=== PATIENT | male | born 1980 | race Caucasian/White ===

== ENCOUNTER 2024-06-22 21:38 | Observation (INO) | payer BC, MEDICARE ==
--- NOTE | 2024-06-22 22:02 | ED ---
General Adult HPI - General Chief complaint: Psychiatric Symptoms Stated complaint: Mental health, chest pain Time Seen by Provider: 06/22/24 21:47 Source: patient Mode of arrival: ambulatory Limitations: no limitations - History of Present Illness Initial comments: Patient is a 44-year-old with past medical 3 diabetes, hyperlipidemia presenting today for chest pain and and depression. Patient states that he has been feeling like he does not want to live anymore for about 7 to 8 years. He states that he lives at home with his mother who is an alcoholic and on his dog was sprayed by skin today which caused him to feel more suicidal than usual. He denies any plan and denies that he would actually harm himself. Denies homicidal ideation or hallucinations. Denies alcohol or drug use today. He states that he was driving and began having left-sided chest pressure that radiated to his left shoulder. He endorsed associated palpitations with this. Denies ADENIKE/ shortness of breath. Did feel sweaty and nauseous initially but no longer. No episodes of emesis. No cough or hemoptysis. - Related Data Home Medications Medication Instructions Recorded Confirmed Albuterol Sulfate [Albuterol 1 - 2 puff PO RT-Q4H PRN 06/23/24 06/24/24 Sulfate Hfa] Empagliflozin [Jardiance] 10 mg PO DAILY 06/23/24 06/24/24 Losartan [Cozaar] 25 mg PO DAILY 06/23/24 06/24/24 Previous Rx's Medication Instructions Recorded Aspirin 81 mg PO DAILY tab 06/24/24 Atorvastatin [Lipitor] 80 mg PO HS tab 06/24/24 Calcium Carbonate [Tums] 1,000 mg PO Q4HR PRN tab 06/24/24 Famotidine [Pepcid] 20 mg PO BID tab 06/24/24 INSULIN ASPART (NovoLOG) [NovoLOG See Protocol SQ ACHS each 06/24/24 (formulary)] FLUoxetine HCL [PROzac] 20 mg PO DAILY 30 Days #30 cap 06/29/24 INSULIN ASPART (NovoLOG) [NovoLOG 0 unit SQ ACHS each 06/29/24 (formulary)] amLODIPine [Norvasc] 5 mg PO DAILY tab 06/29/24 Allergies Allergy/AdvReac Type Severity Reaction Status Date / Time No Known Allergies Allergy Verified 06/23/24 07:28 Review of Systems ROS Statement: Those systems with pertinent positive or pertinent negative responses have been documented in the HPI. ROS Other: All systems not noted in ROS Statement are negative. Past Medical History Past Medical History: Diabetes Mellitus, Hypertension History of Any Multi-Drug Resistant Organisms: MRSA Date of last positivie culture/infection: 2019 right leg Past Surgical History: Orthopedic Surgery Additional Past Surgical History / Comment(s): brain tumor, right leg amputation Past Psychological History: Depression Smoking Status: Former smoker Past Alcohol Use History: Rare Past Drug Use History: None Reported General Exam - General Exam Comments Initial Comments: PE: CONSTITUTIONAL: No apparent distress, well appearing SKIN: Warm, dry, no jaundice, hives or petechiae EYES: Pupils are equally round, extraocular movements intact without nystagmus, clear conjunctiva, non-icteric sclera HENT: Normocephalic, atraumatic, moist mucus membranes, oropharynx clear without exudates NECK: , Full range of motion, normal appearance PULMONARY: Clear to auscultation without wheezes, rhonchi, or rales, normal excursion, no accessory muscle use and no stridor CARDIOVASCULAR: Regular rate, rhythm, normal S1 and S2. No appreciated murmurs, rubs or gallops. Strong radial pulses with intact distal perfusion. No lower extremity edema GASTROINTESTINAL: Soft, active bowel sounds throughout, non-tender, non- distended, no palpable masses, no rebound or guarding. No hepatosplenomegaly GENITOURINARY: MUSCULOSKELETAL: Right CHRISTOPHER. Otherwise extremities have no gross deformity, no edema, redness, or swelling. No calf swelling NEUROLOGIC:_a/o x 3, GCS 15, normal mentation and speech. Moves all extremities x 4 without motor or sensory deficit PSYCHIATRIC: Depressed mood and affect, thought process is clear and linear Limitations: no limitations Course Vital Signs 06/22/24 06/22/24 06/23/24 21:40 23:34 00:59 Temperature 99.1 F Pulse Rate 117 H 94 88 Respiratory 20 18 18 Rate Blood Pressure 181/106 142/84 157/88 O2 Sat by Pulse 96 97 98 Oximetry 06/23/24 06/23/24 06/23/24 01:00 02:00 03:00 Temperature Pulse Rate 80 82 90 Respiratory 18 18 18 Rate Blood Pressure 146/96 121/71 130/75 O2 Sat by Pulse 96 97 94 L Oximetry 06/23/24 06/23/24 06/23/24 05:19 07:47 08:29 Temperature 97.7 F 97.9 F Pulse Rate 87 73 Respiratory 16 18 Rate Blood Pressure 132/91 128/81 O2 Sat by Pulse 96 99 97 Oximetry 06/23/24 06/23/24 06/23/24 09:22 10:51 14:11 Temperature Pulse Rate 76 79 73 Respiratory 16 16 17 Rate Blood Pressure 116/70 129/82 111/55 O2 Sat by Pulse 97 99 97 Oximetry 06/23/24 06/23/24 15:13 17:28 Temperature 97.8 F Pulse Rate 81 77 Respiratory 16 16 Rate Blood Pressure 119/60 129/86 O2 Sat by Pulse 98 Oximetry EKG Findings - EKG Comments: EKG Findings:: Sinus tachycardia, rate 102 bpm, CA interval 162 ms, QRS duration 105 ms, QT/QTc 336/394 ms, normal axis, no ST elevations or depressions, no arrhythmia Medical Decision Making - Medical Decision Making Was pt. sent in by a medical professional or institution (GABRIELA Zuniga, PHARMACY TECHNICIAN TRAINEE, urgent care, hospital, or fpc...) When possible be specific @ -No Did you speak to anyone other than the patient for history (EMS, parent, family, police, friend...)? What history was obtained from this source @ -No Did you review nursing and triage notes (agree or disagree)? Why? @ -I reviewed and agree with nursing and triage notes Were old charts reviewed (outside hosp., previous admission, EMS record, old EKG, old radiological studies, urgent care reports/EKG's, fpc records)? Report findings @ -Medical records reviewed Differential Diagnosis (chest pain, altered mental status, abdominal pain women, abdominal pain men, vaginal bleeding, weakness, fever, dyspnea, syncope, headache, dizziness, GI bleed, back pain, seizure, CVA, palpatations, mental health, musculoskeletal)? @Differential Chest Pain: Stable Angina, Unstable Angina, STEMI, NSTEMI pericarditis, pleurisy, chostochondirits, Pneumothorax, Musculoskeletal, Esophageal Spasm GERD, Cholecystitis, Pancreatitis, Zoster, this is not meant to be an all-inclusive list. Differential Mental Health Depression, anxiety, bipolar, psychosis, schizophrenia, borderline personality, situational depression, adjustment disorder, behavioral disorder, brain tumor, malingering, substance abuse, encephalopathy, medication reaction, dementia, hypothyroidism, degenerative neurologic disorder, lupus.... This is not meant to be all-inclusive list EKG interpreted by me (3pts min.). @ -As above X-rays interpreted by me (1pt min.). None done CT interpreted by me (1pt min.). @ -No PE U/S interpreted by me (1pt. min.). @ -None done What testing was considered but not performed or refused? (CT, X-rays, U/S, labs)? Why? @ -None What meds were considered but not given or refused? Why? @ -None Did you discuss the management of the patient with other professionals (pr ofessionals i.e. , PA, PHARMACY TECHNICIAN TRAINEE, lab, RT, psych nurse, licensed social worker, telephone maintenance mechanic, teacher, upscale security officer, skilled nursing case manager)? Give summary @ -No Was smoking cessation discussed for >3mins.? @ -No Was critical care preformed (if so, how long)? @ -No Were there social determinants of health that impacted care today? How? (Homelessness, low income, unemployed, alcoholism, drug addiction, transportation, low edu. Level, literacy, decrease access to med. care, halfway, rehab)? @ -No Was there de-escalation of care discussed even if they declined (Discuss DNR or withdrawal of care, Hospice)? @ -No What co-morbidities impacted this encounter? (DM, HTN, Smoking, COPD, CAD, Cancer, CVA, ARF, Chemo, Hep., AIDS, mental health diagnosis, sleep apnea, morbid obesity)? @ -DM, depression Was patient admitted / discharged? Hospital course, mention meds given and route, prescriptions, significant lab abnormalities, going to OR and other pertinent info. @ admission Pleasant 44-year-old man history diabetes, anemia, depression presenting today for suicidal thoughts and chest pain. States had is under increased stress, his dog was sprayed by skunk and mother is an alcoholic. States he would not himself and denies access to weapons. States that he just does not want to live anymore. His concern for chest pain that began while he was driving this afternoon after increased stress, described as left-sided chest pressure that radiates to his shoulder. Now resolved. On assessment patient is well- appearing in no acute distress, no reproducible chest pain to palpation. No skin changes. Lungs clear auscultation bilaterally, normal S1-S2 on cardiac exam. Right AKA. Patient is withdrawn and guarded. Plan for chest pain workup and EPS evaluation. Pt agreeable with plan. We discussed anticipated admission for chest pain due to patient's risk factors, pt agreeable. Labs reviewed. D-dimer 0.99. Creatinine is somewhat elevated, 1.31, previously 0.8 in 2021 , potentially VIVIAN however GKF wnl and prior creatinine was drawn 2 years ago. Otherwise grossly within normal limits, including initial troponin. Abnormal values not concerning for acute pathology related to presenting complaint. EPS evaluated patient called patient's mother. Patient's mother stated that the patient held a gun to his head earlier this afternoon threatening to kill himself. Plan for admission for chest pain elevated heart score of 4. EPS will follow with patient if admitted. Pt's mother to present to file petition. D dimer 0.99, CTA negative for PE. Discussed case with Dr. Jurado who kindly accepts patient for admission. Pt admitted in stable condition. Undiagnosed new problem with uncertain prognosis? @ -No Drug Therapy requiring intensive monitoring for toxicity (Heparin, Nitro, Insulin, Cardizem)? @ -No Were any procedures done? @ -No Diagnosis/symptom? @ Chest pain, suicidal ideation Acute, or Chronic, or Acute on Chronic? @ -Acute Uncomplicated (without systemic symptoms) or Complicated (systemic symptoms)? @ Complicated Side effects of treatment? @ -No Exacerbation, Progression, or Severe Exacerbation? @ -No Poses a threat to life or bodily function? How? (Chest pain, [place], [place], pneumonia, PE, COPD, DKA, ARF, appy, cholecystitis, CVA, Diverticulitis, Homicidal, Suicidal, threat to staff... and all critical care pts) @ -Yes, both CP w/ elevated Heart Score and SI pose threat to life - Lab Data Result diagrams: 06/22/24 23:04 06/24/24 05:58 Lab Results 06/22/24 06/22/24 06/22/24 Range/Units 22:07 22:07 22:07 WBC (3.8-10.6) k/uL RBC (4.30-5.90) m/uL Hgb (13.0-17.5) gm/dL Hct (39.0-53.0) % MCV (80.0-100.0) fL MCH (25.0-35.0) pg MCHC (31.0-37.0) g/dL RDW (11.5-15.5) % Plt Count (150-450) k/uL MPV Neutrophils % Neutrophils % (Manual) % Lymphocytes % Lymphocytes % (Manual) % Monocytes % Monocytes % (Manual) % Eosinophils % Eosinophils % (Manual) % Basophils % Basophils % (Manual) % Neutrophils # Neutrophils # (Manual) (1.3-7.7) k/uL Lymphocytes # Lymphocytes # (Manual) (1.0-4.8) k/uL Monocytes # Monocytes # (Manual) (0-1.0) k/uL Eosinophils # Eosinophils # (Manual) (0-0.7) k/uL Basophils # Basophils # (Manual) (0-0.2) k/uL Nucleated RBCs (0-0) /100 WBC Manual Slide Review PT 10.0 (10.0-12.5) sec INR 0.9 (<1.2) APTT 29.6 (22.0-30.0) sec D-Dimer 0.99 H (<0.60) mg/L FEU Sodium 138 (137-145) mmol/L Potassium 4.1 (3.5-5.1) mmol/L Chloride 105 (98-107) mmol/L Carbon Dioxide 20 L (22-30) mmol/L Anion Gap 13 mmol/L BUN 26 H (9-20) mg/dL Creatinine 1.31 H (0.66-1.25) mg/dL Est GFR (CKD-EPI)AfAm 75 (>60 ml/min/1.73 sqM) Est GFR (CKD-EPI)NonAf 65 (>60 ml/min/1.73 sqM) Glucose 360 H (74-99) mg/dL Calcium 9.1 (8.4-10.2) mg/dL Magnesium 1.7 (1.6-2.3) mg/dL Total Bilirubin 0.6 (0.2-1.3) mg/dL AST 33 (17-59) U/L ALT 45 (4-49) U/L Alkaline Phosphatase 122 (38-126) U/L Troponin I <0.012 (0.000-0.034) ng/mL NT-Pro-B Natriuret Pep <20 pg/mL Total Protein 7.5 (6.3-8.2) g/dL Albumin 4.3 (3.5-5.0) g/dL Amylase 51 (30-110) U/L Lipase 227 (23-300) U/L 06/22/24 06/23/24 Range/Units 23:04 00:32 WBC 7.1 (3.8-10.6) k/uL RBC 5.03 (4.30-5.90) m/uL Hgb 14.8 (13.0-17.5) gm/dL Hct 42.9 (39.0-53.0) % MCV 85.4 (80.0-100.0) fL MCH 29.4 (25.0-35.0) pg MCHC 34.5 (31.0-37.0) g/dL RDW 14.1 (11.5-15.5) % Plt Count 188 (150-450) k/uL MPV 7.9 Neutrophils % PHARMACY TECHNICIAN TRAINEE Neutrophils % (Manual) 76 % Lymphocytes % PHARMACY TECHNICIAN TRAINEE Lymphocytes % (Manual) 13 % Monocytes % PHARMACY TECHNICIAN TRAINEE Monocytes % (Manual) 7 % Eosinophils % PHARMACY TECHNICIAN TRAINEE Eosinophils % (Manual) 3 % Basophils % PHARMACY TECHNICIAN TRAINEE Basophils % (Manual) 1 % Neutrophils # PHARMACY TECHNICIAN TRAINEE Neutrophils # (Manual) 5.40 (1.3-7.7) k/uL Lymphocytes # PHARMACY TECHNICIAN TRAINEE Lymphocytes # (Manual) 0.92 L (1.0-4.8) k/uL Monocytes # PHARMACY TECHNICIAN TRAINEE Monocytes # (Manual) 0.50 (0-1.0) k/uL Eosinophils # PHARMACY TECHNICIAN TRAINEE Eosinophils # (Manual) 0.21 (0-0.7) k/uL Basophils # PHARMACY TECHNICIAN TRAINEE Basophils # (Manual) 0.07 (0-0.2) k/uL Nucleated RBCs 0 (0-0) /100 WBC Manual Slide Review Performed PT (10.0-12.5) sec INR (<1.2) APTT (22.0-30.0) sec D-Dimer (<0.60) mg/L FEU Sodium (137-145) mmol/L Potassium (3.5-5.1) mmol/L Chloride (98-107) mmol/L Carbon Dioxide (22-30) mmol/L Anion Gap mmol/L BUN (9-20) mg/dL Creatinine (0.66-1.25) mg/dL Est GFR (CKD-EPI)AfAm (>60 ml/min/1.73 sqM) Est GFR (CKD-EPI)NonAf (>60 ml/min/1.73 sqM) Glucose (74-99) mg/dL Calcium (8.4-10.2) mg/dL Magnesium (1.6-2.3) mg/dL Total Bilirubin (0.2-1.3) mg/dL AST (17-59) U/L ALT (4-49) U/L Alkaline Phosphatase (38-126) U/L Troponin I 0.025 (0.000-0.034) ng/mL NT-Pro-B Natriuret Pep pg/mL Total Protein (6.3-8.2) g/dL Albumin (3.5-5.0) g/dL Amylase (30-110) U/L Lipase (23-300) U/L Disposition Clinical Impression: Chest pain, Suicidal ideation Disposition: ADMITTED IP TO THIS HOSP Condition: Stable
[2024-06-22] MEDS: ASPIRIN 81 MG PO STA (22:37)
[2024-06-22] MEDS: NITROGLYCERIN SL TABS 0.4 MG TAB SUBLINGUAL STA (22:37)
[2024-06-22 22:42] LABS: NT-Pro-B-Type Natriuretic Pept <20 pg/mL
[2024-06-22 22:50] LABS: INR 0.9 (<1.2); Partial Thromboplastin Time 29.6 sec (22.0-30.0)
[2024-06-22 23:06] LABS: HCT 42.9 % (39.0-53.0); HGB 14.8 gm/dL (13.0-17.5); MCH 29.4 pg (25.0-35.0); MCHC 34.5 g/dL (31.0-37.0); MCV 85.4 fL (80.0-100.0); Mean Platelet Volume 7.9; Platelet Count 188 k/uL (150-450); RBC 5.03 m/uL (4.30-5.90); RDW 14.1 % (11.5-15.5); WBC 7.1 k/uL (3.8-10.6)
[2024-06-22 23:47] LABS: ALT 45 U/L (4-49); AST 33 U/L (17-59); African American GFR (CKD) 75 (>60 ml/min/1.73 sqM); Albumin 4.3 g/dL (3.5-5.0); Alkaline Phosphatase 122 U/L (38-126); Amylase 51 U/L (30-110); Anion Gap 13 mmol/L; Blood Urea Nitrogen 26 mg/dL (9-20); Calcium 9.1 mg/dL (8.4-10.2); Carbon Dioxide 20 mmol/L (22-30); Chloride 105 mmol/L (98-107); Glucose 360 mg/dL (74-99); Lipase 227 U/L (23-300); Magnesium 1.7 mg/dL (1.6-2.3); Non-African American GFR(CKD) 65 (>60 ml/min/1.73 sqM); Potassium 4.1 mmol/L (3.5-5.1); Sodium 138 mmol/L (137-145); Total Bilirubin 0.6 mg/dL (0.2-1.3); Total Protein 7.5 g/dL (6.3-8.2)
[2024-06-23 00:25] LABS: Basophils # (M) 0.07 k/uL (0-0.2); Eosinophils # (M) 0.21 k/uL (0-0.7); Lymphocytes # (M) 0.92 k/uL (1.0-4.8); Neutrophils % (M) 76 %; Nucleated Red Blood Cells 0 /100 WBC (0-0); Total Cells Counted 100
--- NOTE | 2024-06-23 00:40 | CT ---
EXAM: CT Angiography Chest With Intravenous Contrast CLINICAL HISTORY: ITS.REASON CT Reason: D dimer 0.99, PE? TECHNIQUE: Axial computed tomographic angiography images of the chest with intravenous contrast. CTDI is 23.6 mGy and DLP is 875.7 mGy-cm. This CT exam was performed using one or more of the following dose reduction techniques: automated exposure control, adjustment of the mA and/or kV according to patient size, and/or use of iterative reconstruction technique. MIP reconstructed images were created and reviewed. COMPARISON: No relevant prior studies available. FINDINGS: Pulmonary arteries: Unremarkable. No pulmonary embolism. Aorta: No acute findings. No thoracic aortic aneurysm. Lungs: Unremarkable. No mass. No consolidation. Pleural space: Unremarkable. No significant effusion. No pneumothorax. Heart: Unremarkable. No cardiomegaly. No significant pericardial effusion. No evidence of RV dysfunction. Bones/joints: No acute fracture. No dislocation. Soft tissues: Unremarkable. Lymph nodes: Unremarkable. No enlarged lymph nodes. Gallbladder and bile ducts: Cholecystectomy. IMPRESSION: No acute findings in the visualized arteries of the chest.
[2024-06-23] MEDS ORDERED: ACETAMINOPHEN TAB 325 MG TAB PO PRN (02:01)
[2024-06-23] MEDS ORDERED: ONDANSETRON 4 MG/2 ML VIAL IVP PRN (02:01)
[2024-06-23] MEDS ORDERED: MORPHINE SULFATE 4 MG/ML SYRINGE IV PRN (02:01)
[2024-06-23] MEDS ORDERED: HYDROcodone/APAP 5-325MG 1 EACH TAB PO PRN (02:01)
[2024-06-23] MEDS ORDERED: MAG HYDROX/AL HYDROX/SIMETH 30 ML CUP PO PRN (02:01)
[2024-06-23] MEDS ORDERED: CALCIUM CARBONATE 500 MG CHEWABLE PO PRN (02:01)
[2024-06-23] MEDS ORDERED: NALOXONE 0.4 MG/ML 1 ML VIAL IV PRN (02:01)
[2024-06-23] MEDS ORDERED: ALPRAZolam 0.25 MG TAB PO PRN (02:01)
--- NOTE | 2024-06-23 04:16 | P.HPIM ---
History of Present Illness H&P Date: 06/23/24 Patient is a 34-year-old male with PMH of type II DM and hyperlipidemia who presents to the emergency room with complaints of chest discomfort and depression. The patient reports that he has been battling with feelings of depression with some suicidal ideation for the past several years. Reports that he had a particularly difficult day today when his dog got sprayed by a skunk. He is mother who continues to be an alcoholic which only exacerbated his depressive thoughts. Reports that he was driving when he suddenly experienced left-sided chest discomfort with radiation down into the arm. He denied any associated symptoms including shortness of breath, palpitations, diaphoresis, nausea, vomiting, or dizziness. Reports that the pain lasted roughly 30 minutes and then resolved completely and he feels at his baseline at the time of interview. Denied lower extremity swelling or pain. In the emergency room chest CTA was unremarkable with EKG showing sinus tachycardia 102 bpm/T wave changes noted as reviewed by me. Laboratory evaluation showed WBC count 7.1, hemoglobin 14.9, troponin negative, D-dimer 0.99, BUN 26, creatinine 1.31, glucose 360, troponin less than 0.012 and proBNP less than 25. ED documentation reviewed and case discussed with ED provider. Review of systems: Pertinent positives and negatives as discussed in HPI, a complete review of systems was performed and all other systems are negative. Physical examination: Vital signs reviewed General: non toxic, no distress, appears at stated age, obese Derm: no unusual rashes/lesions, warm Head: atraumatic, normocephalic, symmetric Eyes: EOMI, no lid lag, anicteric sclera, pupils equal round reactive to light ENT: Nose and ears atraumatic Neck: No cervical lymphadenopathy, trachea midline, supple Mouth: no lip lesion, mucus membranes moist Cardiovascular: S1S2 reg, no murmur, positive dorsalis pedis pulse on left foot, no edema Lungs: CTA bilateral, no rhonchi, no rales, no accessory muscle use Abdominal: soft, nontender to palpation, no guarding Ext: muscle strength 5 out of 5 in all 4 extremities grossly, no gross muscle atrophy, no contractures, right BKA Neuro: CN II-XI grossly intact, no gross focal neuro deficits Psych: Alert, oriented, appropriate affect Assessment: Chest pain, rule out ACS Kidney injury, acute versus chronic Depression and suicidal ideation Chronic conditions: Type II DM, hyperlipidemia Imaging: In the emergency room chest CTA was unremarkable with EKG showing sinus tachycardia 102 bpm/T wave changes noted as reviewed by me. Data Review: Laboratory evaluation showed WBC count 7.1, hemoglobin 14.9, troponin negative, D-dimer 0.99, BUN 26, creatinine 1.31, glucose 360, troponin less than 0.012 and proBNP less than 25. Plan: Cardiac monitoring Cardiology consulted Continue with aspirin and statin Psychiatry consult Trend troponin Insulin sliding scale and blood glucose monitoring DVT prophylaxis: Lovenox Subq The patient is admitted with an anticipated fewer than 2 midnight stay for evaluation of chest pain CODE STATUS: Full Code Discussed with: Patient Anticipated discharge place: Home Past Medical History Past Medical History: Diabetes Mellitus, Hypertension History of Any Multi-Drug Resistant Organisms: MRSA Date of last positivie culture/infection: 2019 right leg Past Surgical History: Orthopedic Surgery Additional Past Surgical History / Comment(s): brain tumor, right leg amputation Past Psychological History: Depression Smoking Status: Former smoker Past Alcohol Use History: Rare Past Drug Use History: None Reported Medications and Allergies Allergies Allergy/AdvReac Type Severity Reaction Status Date / Time No Known Allergies Allergy Verified 06/22/24 21:45 Physical Exam Vitals: Vital Signs Temp Pulse Resp BP Pulse Ox 06/23/24 03:00 90 18 130/75 94 L 06/23/24 02:00 82 18 121/71 97 06/23/24 01:00 80 18 146/96 96 06/23/24 00:59 88 18 157/88 98 06/22/24 23:34 94 18 142/84 97 06/22/24 21:40 99.1 F 117 H 20 181/106 96 Intake and Output 06/22/24 06/22/24 06/23/24 14:59 22:59 06:59 Other: Weight 127.913 kg Results CBC & Chem 7: 06/22/24 23:04 06/22/24 22:07 Labs: Abnormal Lab Results - Last 24 Hours (Table) 06/22/24 06/22/24 06/22/24 Range/Units 22:07 22:07 23:04 Lymphocytes # (Manual) 0.92 L (1.0-4.8) k/uL D-Dimer 0.99 H (<0.60) mg/L FEU Carbon Dioxide 20 L (22-30) mmol/L BUN 26 H (9-20) mg/dL Creatinine 1.31 H (0.66-1.25) mg/dL Glucose 360 H (74-99) mg/dL
[2024-06-23] MEDS: ATORVASTATIN 80 MG TAB PO STA (05:15)
[2024-06-23 05:19] LABS: Glucose,Whole Blood 193 mg/dL (70-110)
[2024-06-23] MEDS: SODIUM CHLORIDE 0.9% 1,000 ML IV SCH (09:25)
[2024-06-23] MEDS: ENOXAPARIN 40 MG/0.4 ML SYRINGE SQ SCH (09:26)
[2024-06-23] MEDS: FAMOTIDINE 20 MG TAB PO SCH (09:26)
[2024-06-23] MEDS: ASPIRIN 81 MG PO SCH (09:26)
--- NOTE | 2024-06-23 10:33 | CA ---
Transthoracic Echo Report Name: Larry Virgen Age: 44 Gender: M : 1980 Exam Date: 06/23/2024 08:32 Exam Location: [facility] Ht (in): 80 Wt (lb): 282 Ordering Physician: Elliot Gary MD Attending/Referring Phys: [employer] Processor Wendi Montague RDCS Procedure CPT: Indications: CP Cardiac Hx: Technical Quality: Technically difficult study Contrast 1: Definity Total Dose (mL): 2 Contrast 2: Total Dose (mL): MEASUREMENTS (Male / Female) Normal Values 2D ECHO LV Diastolic Diameter PLAX 3.9 cm 4.2 - 5.9 / 3.9 - 5.3 cm LV Systolic Diameter PLAX 3.0 cm IVS Diastolic Thickness 1.6 cm 0.6 - 1.0 / 0.6 - 0.9 cm LVPW Diastolic Thickness 1.7 cm 0.6 - 1.0 / 0.6 - 0.9 cm LV Relative Wall Thickness 0.9 RV Internal Dim ED PLAX 4.2 cm LA Volume 31.7 cm??? 18 - 58 / 22 - 52 cm??? LA Volume Index 11.7 cm???/m??? 16 - 28 cm???/m??? M-MODE Aortic Root Diameter MM 3.5 cm LA Systolic Diameter MM 3.6 cm LA Ao Ratio MM 1.0 AV Cusp Separation MM 1.0 cm DOPPLER AV Peak Velocity 132.5 cm/s AV Peak Gradient 7.0 mmHg AV Mean Velocity 101.6 cm/s AV Mean Gradient 4.3 mmHg AV Velocity Time Integral 24.7 cm LVOT Peak Velocity 115.0 cm/s LVOT Peak Gradient 5.3 mmHg LVOT Velocity Time Integral 23.4 cm MV Area PHT 3.5 cm??? Mitral E Point Velocity 80.1 cm/s Mitral A Point Velocity 64.4 cm/s Mitral E to A Ratio 1.2 MV Deceleration Time 215.2 ms MV E' Velocity 8.1 cm/s Mitral E to MV E' Ratio 9.9 TR Peak Velocity 141.1 cm/s TR Peak Gradient 8.0 mmHg Right Ventricular Systolic Press 13.0 mmHg FINDINGS Left Ventricle Moderately increased left ventricular wall thickness. Left ventricular cavity size normal. Normal left ventricular systolic function with no obvious regional wall motion abnormalities. Left ventricular ejection fraction is estimated at 55-60 %. Grade 1 diastolic dysfunction. Right Ventricle Moderate right ventricular dilatation. Right ventricular systolic pressure within normal limits. Right Atrium Normal right atrial size. Left Atrium Normal left atrial size. Mitral Valve Structurally normal mitral valve. Mitral annular calcification. No mitral stenosis, regurgitation or prolapse. Aortic Valve Trileaflet aortic valve. No aortic valve stenosis or regurgitation. Tricuspid Valve Structurally normal tricuspid valve. Mild tricuspid regurgitation. Pulmonic Valve Structurally normal pulmonic valve. Trace pulmonic regurgitation. Pericardium No pericardial effusion. Aorta Normal size aortic root and proximal ascending aorta. CONCLUSIONS Normal LV size and systolic function. Mild mitral annular calcification. Mild mitral and tricuspid regurgitation. No pericardial effusion Previewed by: Dr. Rene Felipe MD (Electronically Signed) Final Date: 23 June 2024 10:32
[2024-06-23 11:52] LABS: Glucose,Whole Blood 198 mg/dL (70-110)
[2024-06-23] MEDS: INSULIN ASPART (NovoLOG) 100 UNIT/ML VIAL SQ SCH (11:57)
--- NOTE | 2024-06-23 12:03 | P.CRDCN ---
History of Present Illness History of present illness: HISTORY OF PRESENT ILLNESS: This is a 44-year-old male with a past medical history significant for hypertension, diabetes, right BKA, depression, and former nicotine dependence. 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 We have been asked to see the patient in consultation for chest pain. Patient examined at the bedside in the emergency room. Patient states that yesterday he was driving in his car when he began to have chest discomfort. He states the pain was in the middle of his chest. He denied having any radiation. He denied any shortness of breath. Denied any nausea or vomiting. Patient states the pain subsided on its own. At the time of examination, he denies any chest pain or pressure. Apparently, the patient had a difficult day yesterday he has his dog got sprayed by a skunk and he has been having some suicidal ideation. Psychiatry is consulted for evaluat ion. DIAGNOSTICS: - EKG reveals sinus tachycardia with no signs of acute ischemia. - Chest CTA: Negative for pulmonary embolism. Heart unremarkable. No cardiomegaly. No significant pericardial effusion. - Laboratory data: WBC 7.1. Hemoglobin 14.8. Platelet count 188. Sodium 138. Potassium 4.1. BUN 26. Creatinine 1.31. Troponin 0.012. 0.025. 0.037. 0.033. - Current home cardiac medications include losartan 25 mg daily and Jardiance 10 mg daily - Echocardiogram obtained this admission reveals ejection fraction 55 to 60%, mild mitral and tricuspid regurgitation. No pericardial effusion. REVIEW OF SYSTEMS: At the time of my exam: CONSTITUTIONAL: Denies fever or chills. HEENT: Denies blurred vision, vision changes, or eye pain. Denies hemoptysis CARDIOVASCULAR: Denies chest pain. Denies orthopnea. Denies PND. Denies palpitations RESPIRATORY: Denies shortness of breath. GASTROINTESTINAL: Denies abdominal pain. Denies nausea or vomiting. HEMATOLOGIC: Denies bleeding disorders. GENITOURINARY: Denies any blood in urine. SKIN: Denies pruitis. Denies rash. PHYSICAL EXAM: VITAL SIGNS: Reviewed. GENERAL: Well-developed in no acute distress. HEENT: Head is normocephalic. Pupils are equal, round. Sclerae anicteric. Mucous membranes of the mouth are moist. Neck supple. No JVD or thyromegaly LUNGS: Respirations even and unlabored. Lungs essentially clear to auscultation bilaterally. HEART: Regular rate and rhythm. S1 and S2 heard. ABDOMEN: Soft. Nondistended. Nontender. EXTREMITIES: Normal range of motion. No clubbing or cyanosis. Right BKA. NEUROLOGIC: Awake and alert. Oriented x 3. ASSESSMENT: Chest pain, acute coronary event ruled out One minimally elevated troponin of unclear significance Depression with suicidal ideation Acute kidney injury, baseline unknown Hypertension Diabetes History of right BKA Former nicotine dependence PLAN: An acute coronary event has been ruled out 2D echo obtained and reviewed Begin IV fluids at 100 cc an hour. Repeat kidney function in a.m. Await psychiatry evaluation If patient remains hospitalized over the weekend we will plan for Lexiscan stress test on Wednesday. Otherwise, patient is stable for discharge from a cardiac standpoint and may follow-up in the office with plans for outpatient stress testing if he is deemed stable for discharge by admitting physician Further recommendations pending patient course Nurse practitioner note has been reviewed by physician. Signing provider agrees with the documented findings, assessment, and plan of care documented by C.O.D. AUDIT CLERK as a scribe. Past Medical History Past Medical History: Diabetes Mellitus, Hypertension History of Any Multi-Drug Resistant Organisms: MRSA Date of last positivie culture/infection: 2019 right leg Past Surgical History: Orthopedic Surgery Additional Past Surgical History / Comment(s): brain tumor, right leg amputation Past Psychological History: Depression Smoking Status: Former smoker Past Alcohol Use History: Rare Past Drug Use History: None Reported Medications and Allergies Home Medications Medication Instructions Recorded Confirmed Type Albuterol Sulfate [Albuterol 1 - 2 puff PO RT-Q4H PRN 06/23/24 06/23/24 History Sulfate Hfa] Empagliflozin [Jardiance] 10 mg PO DAILY 06/23/24 06/23/24 History Insulin Aspart [NovoLOG Flexpen] 40 units SQ AC-TID 06/23/24 06/23/24 History Insulin Glargine,Hum.rec.anlog 40 units SQ HS 06/23/24 06/23/24 History [Lantus Solostar Pen] Losartan [Cozaar] 25 mg PO DAILY 06/23/24 06/23/24 History Allergies Allergy/AdvReac Type Severity Reaction Status Date / Time No Known Allergies Allergy Verified 06/23/24 07:28 Physical Exam Vitals: Vital Signs Temp Pulse Resp BP Pulse Ox 06/23/24 10:51 79 16 129/82 99 06/23/24 09:22 76 16 116/70 97 06/23/24 08:29 97 06/23/24 07:47 97.9 F 73 18 128/81 99 06/23/24 05:19 97.7 F 87 16 132/91 96 06/23/24 03:00 90 18 130/75 94 L 06/23/24 02:00 82 18 121/71 97 06/23/24 01:00 80 18 146/96 96 06/23/24 00:59 88 18 157/88 98 06/22/24 23:34 94 18 142/84 97 06/22/24 21:40 99.1 F 117 H 20 181/106 96 Intake and Output 06/22/24 06/23/24 06/23/24 22:59 06:59 14:59 Other: Weight 127.913 kg Results 06/22/24 23:04 06/22/24 22:07 Cardiac Enzymes 06/22/24 06/22/24 06/23/24 Range/Units 22:07 22:07 00:32 AST 33 (17-59) U/L Troponin I <0.012 0.025 (0.000-0.034) ng/mL 06/23/24 06/23/24 Range/Units 03:02 08:03 AST (17-59) U/L Troponin I 0.037 H* 0.033 (0.000-0.034) ng/mL Coagulation 06/22/24 Range/Units 22:07 PT 10.0 (10.0-12.5) sec APTT 29.6 (22.0-30.0) sec CBC 06/22/24 Range/Units 23:04 WBC 7.1 (3.8-10.6) k/uL RBC 5.03 (4.30-5.90) m/uL Hgb 14.8 (13.0-17.5) gm/dL Hct 42.9 (39.0-53.0) % Plt Count 188 (150-450) k/uL Comprehensive Metabolic Panel 06/22/24 Range/Units 22:07 Sodium 138 (137-145) mmol/L Potassium 4.1 (3.5-5.1) mmol/L Chloride 105 (98-107) mmol/L Carbon Dioxide 20 L (22-30) mmol/L BUN 26 H (9-20) mg/dL Creatinine 1.31 H (0.66-1.25) mg/dL Glucose 360 H (74-99) mg/dL Calcium 9.1 (8.4-10.2) mg/dL AST 33 (17-59) U/L ALT 45 (4-49) U/L Alkaline Phosphatase 122 (38-126) U/L Total Protein 7.5 (6.3-8.2) g/dL Albumin 4.3 (3.5-5.0) g/dL Current Medications Generic Name Dose Route Start Last Admin Trade Name Freq PRN Reason Stop Dose Admin Acetaminophen 650 mg 06/23/24 02:01 Acetaminophen Tab 325 Mg Tab PO Q6HR PRN Mild Pain or Fever > 100.5 Hydrocodone Bitart/Acetaminophen 1 each 06/23/24 02:01 Hydrocodone/Apap 5-325mg 1 Each Tab PO Q6HR PRN Moderate Pain (Scale 4 to 6) Al Hydroxide/Mg Hydroxide 15 ml 06/23/24 02:01 Mag Hydrox/Al Hydrox/Simeth 30 Ml Cup PO Q6HR PRN Indigestion Alprazolam 0.25 mg 06/23/24 02:01 Alprazolam 0.25 Mg Tab PO Q6HR PRN Anxiety Aspirin 81 mg 06/23/24 09:00 06/23/24 09:26 Aspirin 81 Mg PO 81 mg DAILY RANDELL Administration Atorvastatin Calcium 80 mg 06/23/24 21:00 Atorvastatin 80 Mg Tab PO HS RANDELL Calcium Carbonate/Glycine 1,000 mg 06/23/24 02:01 Calcium Carbonate 500 Mg Chewable PO Q4HR PRN Dyspepsia Enoxaparin Sodium 40 mg 06/23/24 09:00 06/23/24 09:26 Enoxaparin 40 Mg/0.4 Ml Syringe SQ 40 mg DAILY RANDELL Administration Famotidine 20 mg 06/23/24 09:00 06/23/24 09:26 Famotidine 20 Mg Tab PO 20 mg BID RANDELL Administration Sodium Chloride 1,000 mls @ 100 mls/hr 06/23/24 09:00 06/23/24 09:25 Saline 0.9% IV 100 mls/hr .Q10H RANDELL Administration Insulin Aspart 0 unit 06/23/24 07:30 Insulin Aspart (Novolog) 100 Unit/Ml Vial SQ ACHS RANDELL Protocol Morphine Sulfate 4 mg 06/23/24 02:01 Morphine Sulfate 4 Mg/Ml Syringe IV Q4HR PRN Severe Pain (Scale 7 to 10) Naloxone HCl 0.2 mg 06/23/24 02:01 Naloxone 0.4 Mg/Ml 1 Ml Vial IV Q2M PRN Opioid Reversal Ondansetron HCl 4 mg 06/23/24 02:01 Ondansetron 4 Mg/2 Ml Vial IVP Q8HR PRN Nausea And Vomiting Intake and Output 06/22/24 06/23/24 06/23/24 22:59 06:59 14:59 Other: Weight 127.913 kg 06/22/24 23:04 06/22/24 22:07
--- NOTE | 2024-06-23 14:48 | P.CN ---
Psychiatric Consult - . Consult date: 06/23/24 Consult:: 06/23/24 14:05 IDENTIFYING DATA: This patient is a 44-year-old male, currently , lives with his mother in a home, she has 3 kids, he collect Social Security disability REASON FOR REFERRAL: Psychiatry was consulted for "suicidal ideations" HISTORY OF PRESENT ILLNESS: The patient presented to the hospital yesterday complaining of chest pain, he was also endorsing depression and suicidal ideations. According to ER report he claims that his mother was an alcoholic and his dog recently got sprayed by a skunk. He was admitted medically, ruling out acute coronary syndrome as patient's troponins was elevated. Cardiology is following along. Patient was petitioned by mother who states that patient put a gun to his head and threatened suicide prior to coming into the hospital. Patient was seen at the bedside agreeable to speak to global technical writer, he was fairly evasive vague, fairly concrete. He was minimizing his depression, claims that he was not formally diagnosed with this. He states that he had a "breakdown" an d states that he started having chest pain. States that he is not having a lot of stress in his life. Claims that he is a amputee for the past 6 or 7 years, finding it difficult to ambulate and function. States that he is disabled, states that he has significant nerve pain and damage in his feet. States that he has general stressors and "life". He was talking about depression, fairly vague, denies any anxiety today. Does state that he has passive suicidal thoughts however no intent. Denying any homicidal ideations. Claims that his sleep and appetite are fair. Patient denies any auditory, visual hallucinations and denies any paranoia or delusions. Patients admits to using no recreational drugs or cigarettes PAST PSYCHIATRIC HISTORY: Patient has a a history of depression. He claims that he was previously on Zoloft however stopped taking it several years ago. Patient denies any previous psychiatric hospitalizations. Patient denies any psychiatric outpatient follow-up. Patient denies any history of suicide attempts in the past. He does claim that he has access to guns and also weapons claims that he has them in his home and also his car. PAST MEDICAL HISTORY: As per ER note ALLERGIES: as per EMR. CHEMICAL DEPENDENCY HISTORY: as per HPI. FAMILY PSYCHIATRIC/SUBSTANCE USE HISTORY: Claims that there are 3 suicides in his mother side. SOCIAL HISTORY: Patient was born and raised in [place]. Claims that he completed high school. 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 Denies any legal history. Claims that he has 3 kids, , lives with his mother in a house, collect Social Security disability. MENTAL STATUS EXAM: General Appearance: Patient appears to be mildly overweight, grayish alvarenga, stated age is alert, somewhat uncooperative and evasive. Patient appears to have fair hygiene and grooming wearing hospital gown with poor eye contact. Behavior: Patient is calmly lying in bed without any agitated behavior. Evasive, poor eye contact Speech: Patient's speech is fluent and nonpressured. [place], vague Mood/Affect: Patient reports their mood is "depressed", affect is congruent and constricted Suicidality/Homicidality: Patient denies having any suicidal or homicidal ideation intent or plan. Perceptions: Patient denies any visual hallucinations and denies any auditory hallucinations Though content/process: There is no evidence of any delusional thought content and thought process is linear and goal-directed. Sidney. Poverty of content Memory and concentration: AOX3, grossly intact for the purposes of this session. Can spell "WORLD" backwards Judgment and insight: Poor IMPRESSIONS: Major depressive disorder, without psychotic features PLAN: -At this time patient DOES meet criteria for inpatient psychiatric admission. -Would recommend the following medication changes/additions: Will hold off on psychiatric medications until patient is admitted to the mental health unit and cleared by medicine and cardiology. -Continue 1:1 sitter for safety until patient is safely transferred to the mental health unit. -Cannot leave AMA at this time. Patient will need a petition and certification if attempting to leave AMA. -When medically stable, patient is eligible for transfer to a psych bed when available. -Communicated plan to patient's nurse -Psychiatry will sign off at this time -Please contact with any questions. 06/23/24 14:43
[2024-06-23 15:24] VITALS: RESP 16
[2024-06-23 17:38] LABS: Glucose,Whole Blood 198 mg/dL (70-110)
[2024-06-23 21:11] LABS: Glucose,Whole Blood 175 mg/dL (70-110)
[2024-06-23] MEDS: ATORVASTATIN 80 MG TAB PO SCH (21:27)
[2024-06-24 06:05] LABS: Glucose,Whole Blood 196 mg/dL (70-110)
[2024-06-24] MEDS: LOSARTAN 25 MG TAB PO SCH (09:02)
[2024-06-24 09:36] LABS: BUN/Creat Ratio 14.75 Ratio (12.00-20.00); Blood Urea Nitrogen 17.7 mg/dL (9.0-27.0); Calcium 8.8 mg/dL (8.7-10.3); Chloride 106 mmol/L (96-109); Glucose 200 mg/dL (70-110); Potassium 4.2 mmol/L (3.5-5.5); Sodium 140 mmol/L (135-145)
[2024-06-24 12:17] LABS: Glucose,Whole Blood 272 mg/dL (70-110)
--- NOTE | 2024-06-24 12:23 | P.DS ---
Providers Date of admission: 06/23/24 02:03 Expected date of discharge: 06/24/24 Attending physician: Martine Jurado MD Consults: 06/23/24 02:01 Consult Physician Routine Consulting Provider: Charles Quiñones Consult Reason/Comments: Chest pain Do you want consulting provider notified?: Yes, Notify in am Consult Physician Routine Consulting Provider: Hay Ghosh Consult Reason/Comments: Suicidal thoughts Do you want consulting provider notified?: Yes, Notify in am Primary care physician: Physician Nonstaff Hospital Course: 34-year-old male with PMH of type II DM and hyperlipidemia who presents to the emergency room with complaints of chest discomfort and depression. The patient reports that he has been battling with feelings of depression with some suicidal ideation for the past several years. Reports that he had a particularly difficult day today when his dog got sprayed by a skunk. He is mother who continues to be an alcoholic which only exacerbated his depressive thoughts. Reports that he was driving when he suddenly experienced left-sided chest discomfort with radiation down into the arm. He denied any associated symptoms including shortness of breath, palpitations, diaphoresis, nausea, vomiting, or dizziness. Reports that the pain lasted roughly 30 minutes and then resolved completely and he feels at his baseline at the time of interview. Denied lower extremity swelling or pain. In the emergency room chest CTA was unremarkable with EKG showing sinus tachycardia 102 bpm/T wave changes noted as reviewed by me. Laboratory evaluation showed WBC count 7.1, hemoglobin 14.9, troponin negative, D-dimer 0.99, BUN 26, creatinine 1.31, glucose 360, troponin less than 0.012 and proBNP less than 25. In the ED he underwent extensive evaluation. T 99.1F, HR 117, RR 20, BP 181/106, 96% on RA. CBC, Coag panel, CMP significant for bicarb 20, BUN 26, Cr 1.31, glu 360. D-Dimer 0.99. Mag 1.7. BNP < 20. Amylase 51, Lipase 227. Troponin < 0.012, 0.025, 0.037, 0.033. CTA chest negative for PE. EKG sinus tachycardia. Second EKG showed sinus rhythm. Cardiology consulted, Echo showed EF 55-60% G1DD, mild MR/TR. Cardiology recommended outpatient follow up for Lexiscan. Psychiatry consulted, recommended transfer to mental health unit. 06/24 Patient was seen and examined. No chest pain. BMP glu 200. Cardiology has cleared the patient for discharge with outpatient follow up for Sun. General: non toxic, no distress, appears at stated age Derm: warm, dry Head: atraumatic, normocephalic, symmetric Eyes: EOMI, no lid lag, anicteric sclera Mouth: no lip lesion, mucus membranes moist Cardiovascular: S1S2 reg, no murmur Lungs: Clear to auscultation bilaterally, no rhonchi, no rales , no accessory muscle use Abd: Non distended. Non tender to palpation. Soft. Ext: no gross muscle atrophy, no edema, no contractures Neuro: no focal neuro deficits Psych: Alert, oriented, appropriate affect Discharge Diagnosis: Chest pain, ACS ruled out Hypertensive urgency, resolved Acute kidney injury, resolved with IV hydration Depression and suicidal ideation Type II DM Hyperlipidemia This complex discharge took 35 minutes to complete. Patient Condition at Discharge: Stable Plan - Discharge Summary Discharge Rx Participant: No New Discharge Prescriptions: New INSULIN ASPART (NovoLOG) [NovoLOG (formulary)] See Protocol SQ ACHS each Famotidine [Pepcid] 20 mg PO BID tab Calcium Carbonate [Tums] 1,000 mg PO Q4HR PRN tab PRN Reason: Dyspepsia Aspirin 81 mg PO DAILY tab Atorvastatin [Lipitor] 80 mg PO HS tab Continue Albuterol Sulfate [Albuterol Sulfate Hfa] 1 - 2 puff PO RT-Q4H PRN PRN Reason: Shortness Of Breath Losartan [Cozaar] 25 mg PO DAILY Empagliflozin [Jardiance] 10 mg PO DAILY Discontinued Insulin Glargine,Hum.rec.anlog [Lantus Solostar Pen] 40 units SQ HS Insulin Aspart [NovoLOG Flexpen] 40 units SQ AC-TID Discharge Medication List Albuterol Sulfate [Albuterol Sulfate Hfa] 1 - 2 puff PO RT-Q4H PRN 06/23/24 [History] Empagliflozin [Jardiance] 10 mg PO DAILY 06/23/24 [History] Losartan [Cozaar] 25 mg PO DAILY 06/23/24 [History] Aspirin 81 mg PO DAILY tab 06/24/24 [Rx] Atorvastatin [Lipitor] 80 mg PO HS tab 06/24/24 [Rx] Calcium Carbonate [Tums] 1,000 mg PO Q4HR PRN tab 06/24/24 [Rx] Famotidine [Pepcid] 20 mg PO BID tab 06/24/24 [Rx] INSULIN ASPART (NovoLOG) [NovoLOG (formulary)] See Protocol SQ ACHS each 06/24/24 [Rx] Follow up Appointment(s)/Referral(s): Nonstaff,Physician [Primary Care Provider] - 1-2 days Discharge Disposition: TRANSFER TO PSYCH HOSP/UNIT
--- NOTE | 2024-06-24 14:14 | P.PN ---
Subjective Progress Note Date: 06/24/24 The patient is a 44-year-old male with multiple comorbid conditions, who presented to the hospital with chest discomfort. ACS workup was unremarkable and he has not had any recurrent symptoms since his arrival to the hospital. Echocardiogram revealed preserved LV function with no valvular abnormalities. Since the patient is an obese male with hypertension and diabetes, stress testing is indicated. Patient is also admitted with suicidal ideation, therefore if he is still admitted to the hospital on June 26, we will proceed with stress testing. Interviewed and examined resting comfortably in bed. No current chest discomfort or shortness of breath. GENERAL: Well-appearing, well-nourished and in no acute distress. NECK: Supple without JVD or thyromegaly. LUNGS: Breath sounds clear to auscultation bilaterally. Respiration equal and unlabored. No wheezes, rales or rhonchi. HEART: Regular rate and rhythm without murmurs, rubs or gallops. S1 and S2 heard. EXTREMITIES: Normal range of motion, no edema. No clubbing or cyanosis. Peripheral pulses intact and strong. TELEMETRY: Sinus mechanism overnight IMPRESSION: Chest pain, acute coronary event ruled out One minimally elevated troponin of unclear significance Depression with suicidal ideation Acute kidney injury, baseline unknown Hypertension Diabetes History of right BKA Former nicotine dependence PLAN: Continue current medication regimen Stress testing to be performed on Wednesday if patient is still inpatient Outpatient follow-up thereafter I am dictating on behalf of Dr Wilner Sanchez's history/physical and assessm ent/plan. Objective - Vital Signs Vital signs: Vital Signs Temp 98.4 F 06/24/24 07:00 Pulse 74 06/24/24 07:00 Resp 16 06/24/24 07:00 BP 151/83 06/24/24 07:00 Pulse Ox 98 06/24/24 07:00 FiO2 Intake & Output 06/23/24 06/24/24 06/24/24 18:59 06:59 18:59 Intake Total 0 118 Balance 0 118 Weight 127.913 kg Intake: Oral 0 118 Other: Voiding Method Toilet Toilet # Voids 2 - Labs CBC & Chem 7: 06/22/24 23:04 06/24/24 05:58 Labs: Abnormal Lab Results - Last 24 Hours (Table) 06/23/24 06/23/24 06/24/24 Range/Units 17:37 21:10 05:58 Glucose 200 H (70-110) mg/dL POC Glucose (mg/dL) 198 H 175 H (70-110) mg/dL 06/24/24 06/24/24 Range/Units 06:03 12:16 Glucose (70-110) mg/dL POC Glucose (mg/dL) 196 H 272 H (70-110) mg/dL
[2024-06-24 15:12] VITALS: BP 144/84; PULSE 78; TEMP 98.2
[2024-06-24 17:30] LABS: Glucose,Whole Blood 248 mg/dL (70-110)
[2024-06-26] MEDS ORDERED: REGADENOSON 0.4 MG/5 ML SYRINGE IV PRN (06:00)
[2024-06-26] MEDS ORDERED: CAFFEINE CITRATE 60 MG/3 ML VIAL IV PRN (06:00)
[2024-06-26] MEDS ORDERED: AMINOPHYLLINE 500 MG/20 ML VIAL IV PRN (06:00)
== END 2024-06-24 15:14 ==
LOC: EC 21:38 → 6NMEDSUR 06-23 02:03
PROVIDERS: ADMIT Internal Medicine; ATTEND Internal Medicine
DX: R07.89 Other chest pain (principal); R79.89 Other specified abnormal findings of blood chemistry; I16.0 Hypertensive urgency; F32.9 Major depressive disorder, single episode, unspecified; R45.851 Suicidal ideations; N17.9 Acute kidney failure, unspecified; E78.5 Hyperlipidemia, unspecified; E11.9 Type 2 diabetes mellitus without complications; I10 Essential (primary) hypertension; E66.9 Obesity, unspecified; Z87.891 Personal history of nicotine dependence; Z89.511 Acquired absence of right leg below knee; Z79.4 Long term (current) use of insulin; Z79.82 Long term (current) use of aspirin; Z79.84 Long term (current) use of oral hypoglycemic drugs; Z79.899 Other long term (current) drug therapy
CPT/HCPCS: 96372 ×2; 82075; 99285; 36415 ×2; 94760; 93005; 85379; 83880; 80053; 80048; 82150; 83690; 83735; 84484 ×2; 85025; 85610; 85730; 87636; 71275; G0378 ×2; C8929; J1650 ×2; Q9957; Q9967; 93306

== ENCOUNTER 2024-06-24 14:13 | Inpatient (IN) | payer MEDICARE ==
[2024-06-24] MEDS ORDERED: IBUPROFEN 600 MG TAB PO PRN (14:31)
[2024-06-24] MEDS ORDERED: ACETAMINOPHEN TAB 325 MG TAB PO PRN (14:31)
[2024-06-24] MEDS ORDERED: MAG HYDROX/AL HYDROX/SIMETH 355 ML BOTTLE PO PRN (14:31)
[2024-06-24] MEDS ORDERED: MAGNESIUM HYDROXIDE 2,400 MG/30 ML CUP PO PRN (14:31)
[2024-06-24] MEDS ORDERED: CALCIUM CARBONATE 500 MG CHEWABLE PO PRN (14:33)
[2024-06-24] MEDS ORDERED: ALBUTEROL HFA INHALER INHALATION PRN (14:33)
[2024-06-24] MEDS ORDERED: LORazepam 1 MG TAB PO PRN (14:36)
[2024-06-24] MEDS ORDERED: HALOPERIDOL LACTATE 5 MG/ML 1 ML VIAL IM PRN (14:36)
[2024-06-24] MEDS ORDERED: LORazepam 2 MG/ML INJ IM PRN (14:36)
[2024-06-24] MEDS ORDERED: haloperidoL 5 MG TAB PO PRN (14:36)
[2024-06-24 16:00] LABS: Appearance,Urine Clear (Clear); Bilirubin,Urine Negative (Negative); Blood,Urine Small (Negative); Color,Urine Colorless; Glucose,Urine (UA) 4+ (Negative); Ketones,Urine Negative (Negative); Leukocyte Esterase,Urine Negative (Negative); Mucus,Urine Rare /hpf; Nitrite,Urine Negative (Negative); PH, Urine 6.5 (5.0-8.0); Protein,Urine 1+ (Negative); RBC,Urine <1 /hpf (0-5); Specific Gravity,Urine 1.035 (1.001-1.035); Urobilinogen,Urine <2.0 mg/dL (<2.0); WBC,Urine 1 /hpf (0-5)
[2024-06-24] MEDS: INSULIN ASPART (NovoLOG) 100 UNIT/ML VIAL SQ SCH (17:53)
[2024-06-24 20:16] LABS: Glucose,Whole Blood 317 mg/dL (70-110)
[2024-06-24] MEDS: FAMOTIDINE 20 MG TAB PO SCH (21:12)
[2024-06-24] MEDS: ATORVASTATIN 80 MG TAB PO SCH (21:12)
[2024-06-25] MEDS: ASPIRIN 81 MG PO SCH (08:19)
[2024-06-25] MEDS: DAPAGLIFLOZIN PROPANEDIOL 5 MG TABLET PO SCH (08:19)
[2024-06-25 08:20] LABS: Glucose,Whole Blood 224 mg/dL (70-110)
[2024-06-25 08:22] LABS: Urine Alcohol Negative (Negative); Urine Barbiturate Negative (Negative); Urine Cocaine Negative (Negative); Urine Methadone Negative (Negative); Urine Opiates Negative (Negative); Urine Phencyclidine Negative (Negative)
[2024-06-25] MEDS: LOSARTAN 25 MG TAB PO SCH (08:42)
--- NOTE | 2024-06-25 09:49 | P.HP ---
Psychiatric H&P - . History & Physical: Allergies Allergy/AdvReac Type Severity Reaction Status Date / Time No Known Allergies Allergy Verified 06/23/24 07:28 Vital Signs Temp 98.1 F 06/24/24 15:55 Pulse 92 06/24/24 15:55 Resp 17 06/24/24 15:55 BP 136/102 06/24/24 21:00 Pulse Ox 98 06/24/24 15:55 FiO2 Intake & Output 06/24/24 06/25/24 06/25/24 18:59 06:59 18:59 Weight 127.913 kg Laboratory Last Values POC Glucose (mg/dL) 224 mg/dL (70-110) H 06/25/24 08:19 POC Glu Quill Fixer ID Maribel Garcia 06/25/24 08:19 Urine Color Colorless 06/24/24 15:45 Urine Appearance Clear (Clear) 06/24/24 15:45 Urine pH 6.5 (5.0-8.0) 06/24/24 15:45 Ur Specific [place] 1.035 (1.001-1.035) 06/24/24 15:45 Urine Protein 1+ (Negative) H 06/24/24 15:45 Urine Glucose (UA) 4+ (Negative) H 06/24/24 15:45 Urine Ketones Negative (Negative) 06/24/24 15:45 Urine Blood Small (Negative) H 06/24/24 15:45 Urine Nitrite Negative (Negative) 06/24/24 15:45 Urine Bilirubin Negative (Negative) 06/24/24 15:45 Urine Urobilinogen <2.0 mg/dL (<2.0) 06/24/24 15:45 Ur Leukocyte Esterase Negative (Negative) 06/24/24 15:45 Urine RBC <1 /hpf (0-5) 06/24/24 15:45 Urine WBC 1 /hpf (0-5) 06/24/24 15:45 Urine Mucus Rare /hpf (None) H 06/24/24 15:45 Urine Opiates Screen Negative (Negative) 06/24/24 15:45 Urine Methadone Screen Negative (Negative) 06/24/24 15:45 Ur Propoxyphene Screen Negative (Negative) 06/24/24 15:45 Urine Barbiturates Negative (Negative) 06/24/24 15:45 Ur Phencyclidine Scrn Negative (Negative) 06/24/24 15:45 Ur Amphetamine Screen Negative (Negative) 06/24/24 15:45 U Benzodiazepines Scrn Negative (Negative) 06/24/24 15:45 Urine Cocaine Screen Negative (Negative) 06/24/24 15:45 U Cannabinoids Screen Negative (Negative) 06/24/24 15:45 Urine Alcohol Negative (Negative) 06/24/24 15:45 U Creatinine Drug Scrn 92.5 mg/dL (>=20.0) 06/24/24 15:45 06/25/24 09:34 IDENTIFYING DATA: This patient is a 44-year-old male, currently , lives with his mother in a home, she has 3 kids, he collect Social Security disability HISTORY OF PRESENT ILLNESS: Pt was admitted for CP and endorsed depression and SI and psychiatry was consulted. He was deemed appropriate for admission and was transferred to the unit after medical clearance. Per chart, patient was petitioned for putting a gun to his head and threatening suicide. He was significantly minimizing this while on the medical floor. Patient states "I just snapped" at his mother in order to "getting arise out of somebody" patient states that he has not been seriously suicidal for several years. States that his mother is a significant stressor and he does not enjoy living with her. Him and his mother argue often, states that his mother calls him "useless and lazy" patient denies suicidal ideations, homicidal ideations, past suicide attempts, current or past hallucinations, sources of support. he states that his children are a major reason to live. He has access to several drops. States that there is multiple pistols retinal be available at his home, in addition to guns under his bed and in his car. Denies drug use. PAST PSYCHIATRIC HISTORY: Patient has a a history of depression. He claims that he was previously on Zoloft however stopped taking it several years ago because it caused significant anhedonia. Patient denies any previous psychiatric hospitalizations. Patient denies any psychiatric outpatient follow-up. Patient denies any history of suicide attempts in the past. He does claim that he has access to guns and also weapons claims that he has them in his home and also his car. CHEMICAL DEPENDENCY HISTORY: denies, UDS negative FAMILY PSYCHIATRIC/SUBSTANCE USE HISTORY: Claims that there are 3 suicides in his mother side. SOCIAL HISTORY: Patient was born and raised in [facility]. Claims that he completed high school. 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 Denies any legal history. Claims that he has 3 kids, , lives with his mother in a house, collect Social Security disability. MENTAL STATUS EXAM: General Appearance: overweight, grayish al[place]ga, stated age is alert. Patient appears to have fair hygiene and grooming wearing hospital gown with poor eye contact. Amputee with prosthetic Behavior: cooperative Speech: Patient's speech is fluent and nonpressured. Mood/Affect: euthymic, affect is congruent and constricted Suicidality/Homicidality: Patient denies having any suicidal or homicidal ideation intent or plan. Perceptions: Patient denies any visual hallucinations and denies any auditory hallucinations Though content/process: There is no evidence of any delusional thought content and thought process is linear and goal-directed. [place]. Poverty of content Memory and concentration: AOX3, grossly intact for the purposes of this session. Judgment and insight: Poor STRENGTHS/WEAKNESSES: strength is that patient is [resilient]. Weakness is that patient [has poor judgment and is impulsive] INTELLECT: [average] IMPRESSIONS: Major depressive disorder, without psychotic features PLAN: -Patient is admitted under [voluntary] status to MHU for stabilization of psychiatric symptoms and safety. -Medications : Will start patient on Prozac 20 mg daily -Ativan [and Haldol] PRN for agitation/aggression -Patient was informed of the risks, benefits and side effects of the medication and patient verbally consented to taking the medications. -Internal Medicine consult to perform medical evaluation and physical. -SW on board for discharge planning. Encourage patient to participate in groups to work on coping skills. [] 06/25/24 09:46 06/25/24 09:49
[2024-06-25] MEDS: FLUoxetine HCL 20 MG CAP PO SCH (11:37)
[2024-06-25 12:22] LABS: Glucose,Whole Blood 283 mg/dL (70-110)
--- NOTE | 2024-06-25 17:27 | P.MDCNMH ---
History of Present Illness H&P Date: 06/25/24 History of Presenting Illness: Patient is a 44-year-old male with a past medical history of hypertension, hyperlipidemia, GERD, type II insulin-dependent diabetes mellitus, benign brain tumor status post resection, right BKA with prosthesis, and depression. He is currently admitted to inpatient psychiatric unit for depression and suicidal ideations. We were consulted for medical H&P and medical management throughout his hospitalization. Patient seen and fully evaluated in mental health unit. Patient ambulating in halls with a steady gait. He was seen and evaluated in intake room. Patient denies having any medical needs at this time. He admits to medical history as stated above and denies any other history. He reports quitting smoking approximately 3 years ago, admits to very rare alcohol use stating a couple times a year, and denies any drug use. Patient currently denies having any medical complaints including headache, lightheadedness, dizziness, chest pain, palpitations, shortness of breath, abdominal pain, nausea, vomiting, or any other complaints at this time. Review of systems: Pertinent positives and negatives as discussed in HPI, a complete review of systems was performed and all other systems are negative. Physical exam: Vital signs reviewed and stable. General: Nontoxic, no distress and appears stated age. Derm: Skin warm and dry, normal coloration for ethnicity. Head: Atraumatic, normocephalic and symmetric. Eyes: EOM's intact, no lid lag, and anicteric sclera Mouth: no lip lesions, mucus membranes moist Cardiovascular: regular rate and rhythm with normal S1S2, no murmur, positive posterior tibial pulses bilaterally, and cap refill < 2 seconds. Lungs: Respirations even, regular, and unlabored on room air. Lungs CTA bilaterally, no rhonchi, no rales, no wheezing, and no accessory muscle usage. Abdominal: soft, nontender to palpation, no guarding, no appreciable organomegaly Ext: No gross muscle atrophy, no edema, no contractures. Right AKA with prosthetic. Neuro: Speech clear, face symmetrical and CN II-XII grossly intact with no noted focal neuro deficits Psych: Alert and oriented to person, place, time, and situation. Appropriate and pleasant affect. Assessment and Plan of Care: Poorly controlled diabetes mellitus with hyperglycemia Continue Farxiga 5 mg daily along with glycemic protocol and NovoLog sliding scale. Hemoglobin A1c is 10.3%. Hypertension Monitor vital signs and continue daily medication regimen with losartan 25 mg daily and start patient on amlodipine 5 mg daily. Hyperlipidemia Continue daily medication regimen with atorvastatin 80 mg nightly. GERD Continue daily medication regimen with Pepcid 20 mg twice daily. Depression with suicidal ideations Maintain suicide precautions. Management per primary admitting psychiatric team. Data reviewed: Vital signs reviewed. Blood pressure 162/84, heart rate 87, respiratory rate 18, temp 96.6 F, and SpO2 of 99% on room air. Labs reviewed. Blood glucose levels ranging from 224-317. Hemoglobin A1c elevated at 10.3%. TSH normal findings at 1.440. Urinalysis positive for protein, glucose, and blood. Urine drug screen negative. Thank you for allowing us to participate in the care of this pleasant patient. Do not hesitate to contact us with questions. Someone can be reached from the [facility] hospitalist group all hours of the day at [phone] or via [employer]. Patient was seen independently by Nurse Practitioner. This document was prepared using [employer] dictation software. Please allow for errors in surgical services tech while rare they do occur. Zev Chapman NP rendered care for this patient independently, reviewed the findings and plan as documented in the note above. I did not physically speak with or examine the patient on this date. Past Medical History Past Medical History: Diabetes Mellitus, Hypertension Additional Past Medical History / Comment(s): benign brain tumor with resection, sleep apnea (no cpap machine) History of Any Multi-Drug Resistant Organisms: MRSA Date of last positivie culture/infection: 2018 right leg MDRO Source:: right left Past Surgical History: Orthopedic Surgery Additional Past Surgical History / Comment(s): brain tumor resection, right BKA amputation 2019 Past Anesthesia/Blood Transfusion Reactions: No Reported Reaction Past Psychological History: Depression Smoking Status: Former smoker Past Alcohol Use History: Rare Past Drug Use History: None Reported Medications and Allergies Home Medications Medication Instructions Recorded Confirmed Type Albuterol Sulfate [Albuterol 1 - 2 puff PO RT-Q4H PRN 06/23/24 06/24/24 History Sulfate Hfa] Empagliflozin [Jardiance] 10 mg PO DAILY 06/23/24 06/24/24 History Losartan [Cozaar] 25 mg PO DAILY 06/23/24 06/24/24 History Aspirin 81 mg PO DAILY tab 06/24/24 06/24/24 Rx Atorvastatin [Lipitor] 80 mg PO HS tab 06/24/24 06/24/24 Rx Calcium Carbonate [Tums] 1,000 mg PO Q4HR PRN tab 06/24/24 06/24/24 Rx Famotidine [Pepcid] 20 mg PO BID tab 06/24/24 06/24/24 Rx INSULIN ASPART (NovoLOG) [NovoLOG See Protocol SQ ACHS each 06/24/24 06/24/24 Rx (formulary)] Allergies Allergy/AdvReac Type Severity Reaction Status Date / Time No Known Allergies Allergy Verified 06/23/24 07:28 Physical Exam Vitals: Vital Signs Temp Pulse Resp BP Pulse Ox 06/25/24 10:08 96.6 F L 87 18 162/84 99 06/24/24 21:00 136/102 Intake and Output 06/25/24 06/25/24 06/25/24 06:59 14:59 22:59 Other: Weight 127.913 kg Cranial Nerve Examination - Cranial Nerves Cranial Nerve II- Optic: Intact Cranial Nerve III- Oculomotor: Intact Cranial Nerve IV- Trochlear: Intact Cranial Nerve V- Trigeminal: Intact Cranial Nerve - Abducens: Intact Cranial Nerve VII- Facial: Intact Cranial Nerve VIII- Auditory: Intact Cranial Nerve IX- Glossopharyngeal: Intact Cranial Nerve X- Vagus: Intact Cranial Nerve XI- Accessory: Intact Cranial Nerve XII- Hypoglossal: Intact Results Labs: Abnormal Lab Results - Last 24 Hours (Table) 06/24/24 06/25/24 06/25/24 Range/Units 20:14 08:19 09:52 POC Glucose (mg/dL) 317 H 224 H (70-110) mg/dL Hemoglobin A1c 10.3 H (<=6.0) % 06/25/24 Range/Units 12:20 POC Glucose (mg/dL) 283 H (70-110) mg/dL Hemoglobin A1c (<=6.0) %
[2024-06-25 17:36] LABS: Glucose,Whole Blood 199 mg/dL (70-110)
[2024-06-25] MEDS: amLODIPine 5 MG TAB PO SCH (17:47)
[2024-06-25 20:07] LABS: Glucose,Whole Blood 334 mg/dL (70-110)
[2024-06-26 08:05] LABS: Glucose,Whole Blood 191 mg/dL (70-110)
--- NOTE | 2024-06-26 12:27 | P.PN ---
Progress Note - Text Progress Note Date: 06/26/24 Interval History: Patient was seen wandering the hallways and was directable and agreeable to ruma snider with radio script writer in the office. Speaking with the patient he notes that he is mildly depressed and denied any suicidal thoughts. He did express that he has been having thoughts of for the last couple years but no plans or intent. He expressed no homicidal ideations. He notes no side effects with the Prozac as of now. Notes one of his biggest problems is feeling useless and his mother is making remarks that he is "lazy". He notes no anxiety. He states that he struggles with initiating sleep and notes that he has sleep apnea but will not use the machine. He notes that his energy, appetite and concentration are normal. Patient denies any auditory, visual hallucinations and denies any paranoia or delusions. Patient denies any side effects from the medications and has been compliant with meds. Collateral: Patient gave me permission to contact his mother Haven [phone]. She confirmed that the patient chronically feels useless. She also notes that she has tried to get him motivated to do things. She notes that he has a hard time starting new projects. She did elaborate that he is a "great cook". She expressed 1 positive factors his 3 children. Mental Status Exam: General Appearance: Patient appears to be stated age is alert, directable, and cooperative. Behavior: Patient is calmly seated without any agitated behavior. Speech: Patient's speech is fluent and nonpressured. Mood/Affect: Mood is improving mildly, affect is congruent and constricted. Suicidality/Homicidality: Patient denies having any suicidal or homicidal ideation intent or plan. Perceptions: Patient denies any visual hallucinations and denies any auditory hallucinations Though content/process: There is no evidence of any delusional thought content and thought process is linear and goal-directed. Memory and concentration: AOX3, grossly intact for the purposes of this session Judgment and insight: Improving mildly Assessment Patient has a lot of mental barriers in his life due to his disability. Therapy will be a del rosario part of recovery. Continue hospitalization at this time. 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 -Medications : Prozac 20 mg take 1 tablet by mouth once daily for depression -Ativan and Haldol PRN for agitation/aggression -Patient was informed of the risks, benefits and side effects of the medication and patient verbally consented to taking the medications. -Internal Medicine consult to perform medical evaluation and physical. -SW on board for discharge planning. Encourage patient to participate in groups to work on coping skills.
[2024-06-26 12:36] LABS: Glucose,Whole Blood 238 mg/dL (70-110)
[2024-06-26 16:26] VITALS: BMI 30.9
[2024-06-26 17:32] LABS: Glucose,Whole Blood 313 mg/dL (70-110)
[2024-06-26 20:06] LABS: Glucose,Whole Blood 308 mg/dL (70-110)
[2024-06-27 07:58] LABS: Glucose,Whole Blood 237 mg/dL (70-110)
[2024-06-27 12:44] LABS: Glucose,Whole Blood 263 mg/dL (70-110)
--- NOTE | 2024-06-27 13:24 | P.PN ---
Progress Note - Text Progress Note Date: 06/27/24 Chief complaint: "Thoughts of " Interval History: Patient was seen wandering the hallways and was directable and agreeable to speak with automatic typewriter inspector in the office. Speaking with the patient we talked about his disability and what he can and cannot do. In that conversation it appeared that the patient's presented multiple barriers including financial problems. Patient notes that overall things are going "all right". He rates his depression 5/10 with 10 being worst. Notes that he does not have any anxiety. States that he struggled with sleep last night related to pain and neuropathy in his amputated leg. He notes that his energy, appetite and concentration are good. At this time patient denies any suicidal or homical ideations, intent or plan. Patient denies any auditory, visual hallucinations and denies any paranoia or delusions. Patient denies any side effects from the medications and has been compliant with meds. Mental Status Exam: General Appearance: Patient appears to be stated age is alert, directable, and cooperative. Behavior: Patient appears somewhat agitated and irritable but was appropriate during the interview. Speech: Patient's speech is fluent and nonpressured. Mood/Affect: Mood is improving mildly, affect is congruent and constricted. Suicidality/Homicidality: Patient denies having any suicidal or homicidal ideation intent or plan. Perceptions: Patient denies any visual hallucinations and denies any auditory hallucinations Though content/process: There is no evidence of any delusional thought content and thought process is linear and goal-directed. Memory and concentration: AOX3, grossly intact for the purposes of this session Judgment and insight: Improving mildly Assessment Patient is presenting somewhat irritable and continues to voice that he cannot do much either because of financial reasons or his health concerns. Currently due to his presentation it is felt that he needs further hospitalization to complete stabilization and prevent relapse. 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 -Medications : Prozac 20 mg take 1 tablet by mouth once daily for depression -Ativan and Haldol PRN for agitation/aggression -Patient was informed of the risks, benefits and side effects of the medication and patient verbally consented to taking the medications. -Internal Medicine consult to perform medical evaluation and physical. -SW on board for discharge planning. Encourage patient to participate in groups to work on coping skills.
[2024-06-27 17:38] LABS: Glucose,Whole Blood 273 mg/dL (70-110)
[2024-06-27 20:04] LABS: Glucose,Whole Blood 277 mg/dL (70-110)
[2024-06-28 07:12] VITALS: RESP 16
[2024-06-28 08:02] LABS: Glucose,Whole Blood 216 mg/dL (70-110)
[2024-06-28 12:41] LABS: Glucose,Whole Blood 242 mg/dL (70-110)
--- NOTE | 2024-06-28 13:06 | P.PN ---
Progress Note - Text Progress Note Date: 06/28/24 Chief complaint: "Thoughts of " Interval History: Patient was seen [wandering the hallways] and was directable and agreeable to speak with technical writer and editor in the office. Patient continues to say he is not suicidal that he would not be disappointed if he fell asleep and did not wake up. He relates this to his pain issues. He notes that his biggest hope is to walk his daughters down the aisle and hopefully have grandchildren. He denies any ongoing depression or anxiety. He notes that he struggled with sleep because of pain last night and this is affected his energy level. Continues to have a normal appetite and concentration. At this time patient denies any suicidal or homical ideations, intent or plan. Patient denies any auditory, visual hallucinations and denies any paranoia or delusions. Patient denies any side effects from the medications and has been compliant with meds. I did discuss the concern over the firearms in his vehicle upon discharge. The patient confirmed that he had a concealed carry permit. He also noted that his mother could come and pick them up. Contacting his mother she notes that she could be here at discharge so he can help her unload the pistol. Mental Status Exam: General Appearance: [Patient appears to be stated age is alert, directable, and cooperative.] Behavior: [Patient is calmly seated without any agitated behavior.] Speech: Patient's speech is fluent and nonpressured. Mood/Affect: Mood is improving mildly, affect is congruent and constricted. Suicidality/Homicidality: Patient denies having any suicidal or homicidal ideation intent or plan. Perceptions: Patient denies any visual hallucinations [and denies any auditory hallucinations] Though content/process: [There is no evidence of any delusional thought content and thought process is linear and goal-directed.] Memory and concentration: AOX3, grossly intact for the purposes of this session Judgment and insight: Improving mildly Assessment Patient start to stabilize and it is felt that this point tomorrow he will be able to be discharged and follow-up with outpatient mental health once firearms are secured. 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 -Medications : * Prozac 20 mg take 1 tablet by mouth once daily for depression -Ativan and Haldol PRN for agitation/aggression -Patient was informed of the risks, benefits and side effects of the medication and patient verbally consented to taking the medications. -Internal Medicine consult to perform medical evaluation and physical. -SW on board for discharge planning. Encourage patient to participate in groups to work on coping skills.
[2024-06-28 17:35] LABS: Glucose,Whole Blood 204 mg/dL (70-110)
[2024-06-28 19:59] LABS: Glucose,Whole Blood 314 mg/dL (70-110)
[2024-06-29 07:17] VITALS: TEMP 97.4
[2024-06-29 07:48] LABS: Glucose,Whole Blood 238 mg/dL (70-110)
[2024-06-29 08:42] VITALS: BP 132/97; PULSE 99
--- NOTE | 2024-06-29 09:56 | P.DS ---
Providers Date of admission: 06/24/24 15:37 Expected date of discharge: 06/29/24 Attending physician: Hay Ghosh MD Admission HPI: Admission note was completed by Dr. Thomas "Pt was admitted for CP and endorsed depression and SI and psychiatry was consulted. He was deemed appropriate for admission and was transferred to the unit after medical clearance. Per chart, patient was petitioned for putting a gun to his head and threatening suicide. He was significantly minimizing this while on the medical floor. Patient states "I just snapped" at his mother in order to "getting arise out of somebody" patient states that he has not been seriously suicidal for several years. States that his mother is a significant stressor and he does not enjoy living with her. Him and his mother argue often, states that his mother calls him "useless and lazy" patient denies suicidal ideations, homicidal ideations, past suicide attempts, current or past hallucinations, sources of support. he states that his children are a major reason to live. He has access to several drops. States that there is multiple pistols retinal be available at his home, in addition to guns under his bed and in his car. Denies drug use." Hospital course: Upon admission to the unit patient was directable and agreeable to commence treatment and signed adult voluntary form. Patient got along well with other patients on the unit and followed unit protocol. Patient was compliant with the medications and denied any side effects throughout hospital course. Patient was started on Prozac 20 mg 1 tablet daily to address depression. Patient spoke of his stressors and engaged in therapy both group and individual. Patient was also seen by medical team for history and physical exam. Throughout the course of the hospitalization patient gradually improved with regards to mood, anxiety, sleep and returned back to their baseline level of functioning became more future oriented with improved insight and judgment. On the day of discharge patient denied any suicidal or homicidal ideations intent or plan denied any auditory or visual hallucinations. Patient endorsed wanting to live for their health and family. The patient denied any access to guns or weapons. Patient denied any paranoia and did not endorse any delusions. Patient does not have a significant history of substance abuse and was counseled on abstaining from all substances including alcohol and marijuana. Patient was also counseled on the medications and need for regular compliance and was encouraged to follow-up with their outpatient appointment for mental health and also for primary care. Prior to discharge a family meeting will be arranged by psychologist social to answer any questions and ensure safety upon discharge incuding making sure that guns/weapons are either removed from the home or locked away. Day of discharge patient noted a decrease in his depression from 5/10 to 3/10. He still contends he has no suicidal or homicidal ideations. His mother has voiced that she will meet him at the hospital to remove all firearms from his truck. He notes that he slept weird last night including getting up and down multiple times and having problems falling asleep. He notes that his energy, appetite and concentration are normal. He had voiced planning to follow-up with recommendations and therapy upon discharge. He was able to voice a safety plan including calling 911. Mental status exam: General Appearance: Patient appears to be his stated age is alert, pleasant, and cooperative. Patient is in no acute distress and has improved hygiene and grooming Behavior: Patient is calmly seated without any agitated behavior. Speech: Patient's speech is fluent and nonpressured. Mood/Affect: Patient reports their mood is "better good", affect is congruent and euthymic. Suicidality/Homicidality: Patient denies having any suicidal or homicidal ideation intent or plan. Perceptions: Patient denies any auditory or visual hallucinations. Though content/process: There is no evidence of any delusional thought content and thought process is linear and goal-directed. More future oriented Memory and concentration: AOX3, grossly intact for the purposes of this session. 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 -Continue medications: * Prozac 20 mg take 1 tablet by mouth once daily for depression -Patient was counseled on the need for medication compliance and appropriate follow-up at mental health and also primary care for medical issues. Patient verbalized understanding and agreed. -Social work to help coordinate patients discharge today arrange for and conduct family meeting to ensure safety upon discharge and answer any questions/concerns. also to ensure safe home environment that guns/weapons are either removed from the home or locked away. Social work also to arrange for patients follow up appointments with [facility] for psychiatric care along with follow up with primary care provider. -Patient counseled on abstaining from recreational drugs and marijuana and alcohol. Was informed/educated on the adverse effects on their physical and mental health. Patient verbally agreed and understood. -Patient was instructed to return to the hospital or seek immediate medical care if their psychiatric or medical symptoms do worsen or reoccur. Consults: 06/24/24 14:31 Consult Physician Routine Consulting Provider: [facility] Reason/Comments: H&P Do you want consulting provider notified?: Yes Primary care physician: Adarsh Du Plan - Discharge Summary Discharge Rx Participant: No New Discharge Prescriptions: New FLUoxetine HCL [PROzac] 20 mg PO DAILY 30 Days #30 cap amLODIPine [Norvasc] 5 mg PO DAILY tab INSULIN ASPART (NovoLOG) [NovoLOG (formulary)] 0 unit SQ ACHS each Continue Albuterol Sulfate [Albuterol Sulfate Hfa] 1 - 2 puff PO RT-Q4H PRN PRN Reason: Shortness Of Breath INSULIN ASPART (NovoLOG) [NovoLOG (formulary)] See Protocol SQ ACHS each Famotidine [Pepcid] 20 mg PO BID tab Calcium Carbonate [Tums] 1,000 mg PO Q4HR PRN tab PRN Reason: Dyspepsia Losartan [Cozaar] 25 mg PO DAILY Empagliflozin [Jardiance] 10 mg PO DAILY Aspirin 81 mg PO DAILY tab Atorvastatin [Lipitor] 80 mg PO HS tab Discharge Medication List Albuterol Sulfate [Albuterol Sulfate Hfa] 1 - 2 puff PO RT-Q4H PRN 06/23/24 [History] Empagliflozin [Jardiance] 10 mg PO DAILY 06/23/24 [History] Losartan [Cozaar] 25 mg PO DAILY 06/23/24 [History] Aspirin 81 mg PO DAILY tab 06/24/24 [Rx] Atorvastatin [Lipitor] 80 mg PO HS tab 06/24/24 [Rx] Calcium Carbonate [Tums] 1,000 mg PO Q4HR PRN tab 06/24/24 [Rx] Famotidine [Pepcid] 20 mg PO BID tab 06/24/24 [Rx] INSULIN ASPART (NovoLOG) [NovoLOG (formulary)] See Protocol SQ ACHS each 06/24/24 [Rx] FLUoxetine HCL [PROzac] 20 mg PO DAILY 30 Days #30 cap 06/29/24 [Rx] INSULIN ASPART (NovoLOG) [NovoLOG (formulary)] 0 unit SQ ACHS each 06/29/24 [Rx] amLODIPine [Norvasc] 5 mg PO DAILY tab 06/29/24 [Rx] Follow up Appointment(s)/Referral(s): Priscilla, Clayton of [Other] - 07/03/24 12:00 pm (Teresa 07/03 @ 12:00) Adarsh Du DO [Primary Care Provider] - 1 Week Patient Instructions/Handouts: Depression (DC) Activity/Diet/Wound Care/Special Instructions: Avoid the use of street drugs and alcohol. Take all medications as prescribed. When you are in need of refills on your medications, please contact your medical provider and/or outpatient psychiatrist/provider to have this done. Please go to your scheduled outpatient appointment for aftercare treatment. If symptoms return or become worse, call the crisis line at and/or go to the nearest emergency room for evaluation. National Suicide Hotline 619 Schedule a Lexiscan Stress Test next week Discharge Disposition: HOME SELF-CARE
== END 2024-06-29 10:18 | disposition home or self-care (01) | DRG 885 ==
LOC: 3MHU 15:37
PROVIDERS: ADMIT Psychiatry & Neurology Psychiatry; ATTEND Psychiatry & Neurology Psychiatry
DX: F33.1 Major depressive disorder, recurrent, moderate (principal); R45.851 Suicidal ideations; E11.40 Type 2 diabetes mellitus with diabetic neuropathy, unspecified; E78.5 Hyperlipidemia, unspecified; F41.9 Anxiety disorder, unspecified; G47.30 Sleep apnea, unspecified; I10 Essential (primary) hypertension; Z59.86 Financial insecurity; Z79.4 Long term (current) use of insulin; Z79.82 Long term (current) use of aspirin; Z79.84 Long term (current) use of oral hypoglycemic drugs; Z79.899 Other long term (current) drug therapy; Z86.011 Personal history of benign neoplasm of the brain; Z87.891 Personal history of nicotine dependence; Z89.511 Acquired absence of right leg below knee
CPT/HCPCS: 80306; 81001; 83036; 84443